=== PATIENT | female | born 1955 | race African-American/Black ===

== ENCOUNTER 2020-06-08 22:01 | Emergency (ER) | payer BC, OTHER ==
[~2020-06-08] VITALS: Ht 167.6 cm; Wt 89.7 kg
[~2020-06-08 22:01] MED LIST: ONDA4TAB10 SL
--- NOTE | 2020-06-08 22:22 | PHYS DOC ---
Past Medical History Past Medical History: Diabetes-Type II, Hypertension, Kidney Stone Past Surgical History: Appendectomy, Hysterectomy, Tonsillectomy, Other Additional Past Surgical Histo: lithotripsy,"abd surgery",BLADDER LIFT,LUMPECTOMY Smoking Status: Never Smoker Alcohol Use: None Drug Use: None General Adult EDM: Chief Complaint: CHEST PAIN HPI: HPI: Patient is a 64 year old female past medical history hypertension diabetes hyperlipidemia anxiety depression presents with a chief complaint of chest pain. Patient states chest pain initially started at 070 0 hours. Pain is located in her left chest and would radiate to her left shoulder blade. Patient describes the pain as dull. She initially rated pain 5 out of 10. Patient denied any associated nausea vomiting or shortness of breath. Patient states pain pain resolved around 1400 hrs. after she took Tylenol. Patient states pain returned around 2100 hrs. She did again states the pain was in her left breast that radiates to her left shoulder described as dull. She rated the pain 6 out of 10. She states the pain is still present. Patient took 81 mg aspirin earlier today. She denies any past medical history of cardiac disease. Review of Systems: Review of Systems: Constitutional: Denies fever or chills. [] Eyes: Denies change in visual acuity. [] HENT: Denies nasal congestion or sore throat. [] Respiratory: Denies cough or shortness of breath. [] Cardiovascular: Denies chest pain or edema. [] GI: Denies abdominal pain, nausea, vomiting, bloody stools or diarrhea. [] : Denies dysuria. [] Musculoskeletal: Denies back pain or joint pain. [] Integument: Denies rash. [] Neurologic: Denies headache, focal weakness or sensory changes. [] Endocrine: Denies polyuria or polydipsia. [] Lymphatic: Denies swollen glands. [] Psychiatric: Denies depression or anxiety. [] Heart Score: HEART Score for Chest Pain: HEART Score for Chest Pain Response (Comments) Value History Slighlty/Non-Suspicious 0 ECG Nonspecific Repolarizatio 1 Age >45 - < 65 1 Risk Factors >3 Risk Factors or Hx CAD 2 Troponin < Normal Limit 0 Total 4 Risk Factors: Risk Factors: DM, Current or recent (<one month) smoker, HTN, HLP, family history of CAD, obesity. Risk Scores: Score 0 - 3: 2.5% MACE over next 6 weeks - Discharge Home Score 4 - 6: 20.3% MACE over next 6 weeks - Admit for Clinical Observation Score 7 - 10: 72.7% MACE over next 6 weeks - Early Invasive Strategies Allergies: Allergies: Allergies Coded Allergies Type Severity Reaction Last Updated Verified No Known Drug Allergies 11/24/14 No Physical Exam: PE: Constitutional: Well developed, well nourished, no acute distress, non-toxic appearance. [] HENT: Normocephalic, atraumatic, bilateral external ears normal, oropharynx moist, no oral exudates, nose normal. [] Eyes: PERRLA, EOMI, conjunctiva normal, no discharge. [] Neck: Normal range of motion, no tenderness, supple, no stridor. [] Cardiovascular:Heart rate regular rhythm, no murmur [] Lungs & Thorax: Bilateral breath sounds clear to auscultation [] Abdomen: Bowel sounds normal, soft, no tenderness, no masses, no pulsatile masses. [] Skin: Warm, dry, no erythema, no rash. [] Back: No tenderness, no CVA tenderness. [] Extremities: No tenderness, no cyanosis, no clubbing, ROM intact, no edema. [] Neurologic: Alert and oriented X 3, normal motor function, normal sensory function, no focal deficits noted. [] Psychologic: Affect normal, judgement normal, mood normal. [] EKG: EKG: [] Referral EKG 2214 heart rate [address] elevation no ST depression no acute OH Radiology/Procedures: Radiology/Procedures: [] Impression: FINDINGS: Single view of chest obtained. Cardiomediastinal silhouette is near the upper limits of normal in size. No definite focal airspace consolidation. IMPRESSION: * No definite focal airspace consolidation. Course & Med Decision Making: Course & Med Decision Making Pertinent Labs and Imaging studies reviewed. (See chart for details) [] Patient was evaluated for chief complaint. Work-up consisted of laboratory analysis radiologic imaging and EKG. All results reviewed and discussed with patient. EKG without acute ischemic changes, troponin within normal limits, chest x-ray no acute abnormalities. Treatment in the emergency department included aspirin and nitroglycerin. Patient states after treatment chest pain completely resolved. Patient did have a heart score of 4 risk stratification score would recommend patient to be admitted to the hospital for observation. Discussed hospitalizations for further evaluation vs discharge home and outpatient follow up. Benefits of hospitalization included-- evaluation by cardiology as soon as tomorrow vs outpatient follow up could take up to 1 week or greater to schedule to see PCP or cardiology on outpatient bases. Patient understands risks and benefits. Patient preferred to be discharged home. Joint plan with patient to return if symptoms return but otherwise follow up with PCP jayshree. Patient advised to continue to take asa 81mg daily. Taras Disclaimer: Taras Disclaimer: This electronic medical record was generated, in whole or in part, using a voice recognition dictation system. Departure Departure Impression: Primary Impression: Chest pain Disposition: 01 DC HOME SELF CARE/HOMELESS Condition: STABLE Patient Instructions: Chest Pain (Nonspecific) DEBRA LUNSFORD I DO Jun 08, 2020 22:22
[2020-06-08 22:25] LABS: BASO % 1 % (0-3); EOS # 0.2 x10^3/uL (0.0-0.7); EOS % 3 % (0-3); HEMATOCRIT 34.3 % (36.0-47.0); HEMOGLOBIN 11.7 g/dL (12.0-15.5); LYMPH # 3.3 x10^3/uL (1.0-4.8); LYMPH % 42 % (24-48); MEAN CORPUSCULAR HEMOGLOBIN 29 pg (25-35); MEAN CORPUSCULAR HGB CONC 34 g/dL (31-37); MEAN CORPUSCULAR VOLUME 85 fL (79-100); MONO # 0.7 x10^3/uL (0.0-1.1); MONO % 9 % (0-9); NEUT # 3.6 x10^3/uL (1.8-7.7); NEUT % 46 % (31-73); PLATELET COUNT 294 x10^3/uL (140-400); RED BLOOD COUNT 4.04 x10^6/uL (3.50-5.40); RED CELL DISTRIBUTION WIDTH 13.7 % (11.5-14.5); WHITE BLOOD COUNT 7.8 x10^3/uL (4.0-11.0)
[2020-06-08] MEDS ORDERED: NITROGLYCERIN SUBLINGUAL 0.4 MG BOTTLE OF 25. SL PRN (22:30)
[2020-06-08 22:37] LABS: CALCIUM 9.9 mg/dL (8.5-10.1); CREATININE 0.7 mg/dL (0.6-1.0); GFR 102.6; POTASSIUM 3.8 mmol/L (3.5-5.1)
--- NOTE | 2020-06-08 22:38 | RAD ---
INDICATION: Reason: chest pain / Spl. Instructions: / History: COMPARISON: None. FINDINGS: Single view of chest obtained. Cardiomediastinal silhouette is near the upper limits of normal in size. No definite focal airspace consolidation. IMPRESSION: * No definite focal airspace consolidation. Electronically signed by: Adria Neal MD (06/08/2020 10:35 PM) [id number]
[2020-06-08 22:45] LABS: ALBUMIN 3.9 g/dL (3.4-5.0); ALBUMIN/GLOBULIN RATIO 1.3 (1.0-1.7); TOTAL BILIRUBIN 0.2 mg/dL (0.2-1.0)
[2020-06-08] MEDS ORDERED: ASPIRIN CHEWABLE 81 MG TABLET. PO ONE (23:00)
[2020-06-08 23:57] VITALS: BP 147/70
--- NOTE | 2020-06-09 18:54 | EKG ---
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
== END 2020-06-09 00:20 | disposition home or self-care (01) ==
LOC: ER 22:01
DX: R07.89 Other chest pain (principal); M25.512 Pain in left shoulder; E78.5 Hyperlipidemia, unspecified; E11.9 Type 2 diabetes mellitus without complications; I10 Essential (primary) hypertension; F41.9 Anxiety disorder, unspecified; F32.9 Major depressive disorder, single episode, unspecified; Z87.442 Personal history of urinary calculi
CPT/HCPCS: 36415; 71045; 80053; 84484; 85025; 93005; 99285-25

== ENCOUNTER → 2021-01-23 | Outpatient (CLI) | payer BC ==
--- NOTE | 2021-01-23 14:06 | RAD ---
EXAM: RENAL ULTRASOUND CLINICAL HISTORY: Reason: HEMATURIA COMPARISON: None available. TECHNIQUE: Ultrasound examination of the bilateral kidneys and urinary bladder was performed. FINDINGS: The right kidney measures 13.3 x 6.6 cm and the left measures 12.9 x 5.2 cm. There is no hydronephros is in either kidney. There is normal color flow both kidneys. On the right, in the mid pole posterior cortex, there is a 7 mm hyperechoic abnormality which most likely represents a very small angiomyoli keith, or possible a nonshadowing calculus. On the left, there is a 2.2 cm simple hepatic cyst for whi ch no additional follow-up is required. Urinary bladder is fluid distended and grossly unremarkable. Bilateral ureteral jets are present. IMPRESSION: 1. No evidence of hydronephrosis or hydroureter. 2. 7 mm nonshadowing echogenic focus within the midpole cortex of the right kidney could be a small b enign angiomyolipoma or nonshadowing renal calculus. Electronically signed by: Nader Hu MD (01/23/2021 2:03 PM) [id number]
== END ==
LOC: US 10:43
PROVIDERS: ATTEND Family Medicine
DX: R31.9 Hematuria, unspecified (principal); K76.89 Other specified diseases of liver
CPT/HCPCS: 76770

== ENCOUNTER → 2021-03-13 | Outpatient (CLI) | payer BC ==
--- NOTE | 2021-03-13 15:25 | KCIC ---
EXAM: Left shoulder sonogram. HISTORY: Shoulder lump. TECHNIQUE: Sonographic imaging of the left shoulder at sites of palpable concern was performed. COMPARISON: None. FINDINGS: There is a 2.0 x 2.8 x 0.8 cm circumscribed nonvascular nodule isoechoic to fat within the superficial soft tissues of the left shoulder at the site of probable concern. The imaging appearance is consistent with a lipoma. No additional lesion is seen. IMPRESSION: 2.8 cm lipoma within the superficial soft tissues of the left shoulder at the site of pal pable concern. Continued clinical follow-up of palpable abnormality is recommended. Follow-up imaging can be performed if there is a change in physical exam findings or continuing concern. Electronically signed by: Sharon Amador MD (03/13/2021 3:22 PM) [id number]
== END ==
LOC: KCIC US 14:35
PROVIDERS: ATTEND Plastic Surgery
DX: D17.0 Benign lipomatous neoplasm of skin and subcutaneous tissue of head, face and neck (principal); D17.22 Benign lipomatous neoplasm of skin and subcutaneous tissue of left arm
CPT/HCPCS: 76536

== ENCOUNTER → 2021-06-23 | Day surgery (SDC) | payer BC ==
[~2021-06-23] VITALS: Ht 167.6 cm; Wt 88.0 kg
[~2021-06-23] MED LIST changes: +FLUT9.9S NS; +LIDOCAINE 1%/EPI 1:100,000 20 ML VIAL. INJ ONE; +LOSA1TAB25 PO; +NEOMY/BACITR/POLYMYXIN OINT PACKET. TP ONE; +SERT-267 PO
[2021-06-23 08:39] VITALS: BP 151/81
--- NOTE | 2021-06-23 09:47 | PDOC4 ---
OPERATIVE NOTE Date: Date: Jun 23, 2021 Pre-Op Diagnosis: Lipoma of left shoulder Post-Op Diagnosis: Same Procedure Performed: Excision of lipoma of left shoulder, 2.6cm x 2.4cm, CPT 30524 x 1 unit Intermediate repair, CPT 10544 x 1 unit Surgeon: Suly Vizcarra MD Anesthesia Type: Local with 1% lidocaine with 1:100,000 epinephrine Blood Loss: 5 mL Specimans Obtained: Lipoma of left shoulder Findings: See op note Complications: None Operative Note: The patient was marked in the procedure room. The risks of bleeding, infection, hematoma, seroma, recurrence, injury to surrounding nerves and vessels were discussed with the patient. She understood the risks and desired to proceed. A timeout was performed confirming the correct patient and procedure. The patient was placed in the right lateral decubitus position. The lesion was photographed. The skin and subcutaneous tissue surrounding the lesion were anesthetized with local anesthesia. A #15 scalpel was used to make a 2cm incision overlying the lesion in the natural skin lines and deepened through the dermis. Hemostats were used to dissect the to the lipomatous mass until the capsul was reached in the deep subcutaneous tissues, above the fascia. The mass was dissected from the surrounding subcutaneous tissue without margins. The lesion was sent to pathology for analysis. Hemostasis was achieved with cautery. The wound was irrigated with saline. The deep tissue was closed with 4-0 Vicryl suture, including the fascial base to eliminate space. The skin was closed with 4-0 nylon interrupted horizontal mattress sutures. Bacitracin and a bandaid were applied. The patient tolerated the procedure well. SULY VIZCARRA MD Jun 23, 2021 09:47
== END | disposition home or self-care (01) ==
LOC: SURG 08:14
PROVIDERS: ATTEND Plastic Surgery
DX: D17.22 Benign lipomatous neoplasm of skin and subcutaneous tissue of left arm (principal); I10 Essential (primary) hypertension; K21.9 Gastro-esophageal reflux disease without esophagitis; F32.9 Major depressive disorder, single episode, unspecified; Z79.899 Other long term (current) drug therapy; Z90.710 Acquired absence of both cervix and uterus; Z98.890 Other specified postprocedural states; Z88.8 Allergy status to other drugs, medicaments and biological substances
CPT/HCPCS: 12051; 23071; 88304; J3490